=== PATIENT | female | born 1990 | race Caucasian/White ===

== ENCOUNTER 2017-11-25 03:24 | Emergency (ER) | payer SELFPAY ==
[~2017-11-25] VITALS: Ht 162.6 cm; Wt 63.6 kg
[2017-11-25 05:48] VITALS: BP 123/78
== END 2017-11-25 06:05 | disposition home or self-care (01) ==
LOC: EMS 03:28
DX: M54.12 Radiculopathy, cervical region (principal)
CPT/HCPCS: 99283